=== PATIENT | female | born 1960 | race Caucasian/White ===

== ENCOUNTER 2019-04-22 09:25 | Emergency (ER) | payer OTHER ==
[~2019-04-22] VITALS: Ht 160 cm; Wt 56.7 kg
[~2019-04-22 09:25] MED LIST: ASPI81EC PO; Amoxicillin500 MG PO; Flonase 0.05% N16 GM; Inderal 20 mg T20 MG PO; LEVFLO500 PO; PROP10 PO
[2019-04-22] MEDS ORDERED: Crutch1 EACH MISC (13:36)
== END 2019-04-22 13:36 | disposition home or self-care (01) ==
LOC: ER 09:25
DX: S82.142A Displaced bicondylar fracture of left tibia, initial encounter for closed fracture (principal); V02.90XA Pedestrian on foot injured in collision with two- or three-wheeled motor vehicle, unspecified whether traffic or nontraffic accident, initial encounter; Z79.899 Other long term (current) drug therapy
CPT/HCPCS: 29505; 73564; 73700; 76377; 96372-59; 99284-25; J1885

== ENCOUNTER 2019-09-15 13:58 | Emergency (ER) | payer OTHER ==
[~2019-09-15] VITALS: Ht 160 cm; Wt 56.7 kg
[~2019-09-15 13:58] MED LIST changes: +Crutch1 EACH MISC
[2019-09-15] MEDS ORDERED: ASPI81CH PO (14:03)
[2019-09-15] MEDS ORDERED: OTC VITAMINS (14:04)
== END 2019-09-15 15:46 | disposition home or self-care (01) ==
LOC: ER 13:58
DX: S83.92XA Sprain of unspecified site of left knee, initial encounter (principal); G40.909 Epilepsy, unspecified, not intractable, without status epilepticus; Z87.81 Personal history of (healed) traumatic fracture; Z98.890 Other specified postprocedural states; Z79.899 Other long term (current) drug therapy; Z79.82 Long term (current) use of aspirin; W01.0XXA Fall on same level from slipping, tripping and stumbling without subsequent striking against object, initial encounter
CPT/HCPCS: 73590; 99283-25

== ENCOUNTER → 2021-09-07 | Outpatient (CLI) | payer OTHER ==
[~2021-09-07] MED LIST changes: +ASPI81CH PO; +OTC VITAMINS
[2021-09-09 13:11] LABS: HPV 16 Negative (Negative); HPV 18 Negative (Negative); HPV OTHER HR TYPES Negative (Negative)
== END ==
LOC: LAB SHORT 14:11
PROVIDERS: Obstetrics & Gynecology
DX: Z01.419 Encounter for gynecological examination (general) (routine) without abnormal findings (principal)
CPT/HCPCS: 87624; G0123